=== PATIENT | female | born 1950 | race Caucasian/White ===

== ENCOUNTER → 2016-10-29 | Day surgery (SDC) | payer MEDICARE, BC ==
[~2016-10-29] MED LIST: ALPRAZolam 0.25 MG TAB ONE; BACITRACIN OINT 1 EACH PACKET TOPICAL ONE; LIDOCAINE 1% INJ 10MG/ML (20 ML MDV) ONE; SODIUM BICARB 4% 5 ML VIAL (0.48 MEQ/ML) ONE
--- NOTE | 2016-10-29 11:36 | PCN ---
DATE OF PROCEDURE: PROCEDURE: The patient was taken to the stereotactic biopsy unit and 2 areas of concern in the right breast were localized. The breast was then prepped in a sterile fashion. The first was localized and the skin was anesthetized. Needle was driven to the correct coordinates. Multiple core biopsies were obtained. Radiograph of specimen revealed the area of concern had been sampled and a clip was left behind. Following this, the second area was localized and the needle was driven to the correct coordinates after the skin had been anesthetized with 1% lidocaine. Multiple core biopsies were obtained. Specimen was radiographed. Calcifications of concern were noted in the specimen and a clip was left behind for identification. Both areas were sent to Pathology. One was labeled as superior, the second as inferior. The patient tolerated the procedure in stable condition.
--- NOTE | 2016-10-29 16:42 | MM ---
EXAMINATION TYPE: MG stereo VAD BX RT, 2 sites DATE OF EXAM: 10/29/2016 10:18 AM COMPARISON: 09/28/2016 and 09/14/2016 CLINICAL HISTORY: 66-year-old female referred for stereotactic biopsy for microcalcifications. TECHNIQUE: Stereotactic guided core biopsy of right breast, 2 sites. FINDINGS: The procedure of stereotactic guided core biopsy was explained to the patient. Benefits, alternatives, and risks were discussed. An informed consent was then obtained. The shortness pathway for biopsy was chosen. Shortness pathway was a lateral approach. I performed the localization, then surgeon, Dr. Gurinder Castillo performed the remainder of the procedure. A mammotome vacuum assisted biopsy gun was used to obtain multiple 8 gauge core samples. The patient tolerated the procedure well without any immediate complication. The patient was kept in the radiology department for short stay after the procedure and then discharged home in stable condition. Targeted calcifications are identified in both specimen mammograms. Post biopsy mammogram shows the more anterior plain clip which corresponded to the larger group of microcalcifications to have migrated laterally by 1.5 cm. There are some residual microcalcifications to indicate the original site of biopsy. The more posterior clip with a flared end which corresponded to the smaller group of microcalcifications appears satisfactorily positioned. IMPRESSION: SUCCESSFUL, UNCOMPLICATED STEREOTACTIC GUIDED CORE BIOPSY OF 2 GROUPS OF MICROCALCIFICATIONS IN THE RIGHT BREAST; FULL PATHOLOGY RESULTS TO FOLLOW. NOTE THAT THE MORE ANTERIOR CLIP SHOWS SOME LATERAL MIGRATION. Pathology Results: Benign A. 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 B. 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 Recommendation Follow up mammogram of the right breast in 6 months. ALBERTO
== END ==
LOC: RADMAMWWP 06:46
PROVIDERS: ATTEND Surgery
DX: D24.1 Benign neoplasm of right breast (principal); N60.31 Fibrosclerosis of right breast; N60.11 Diffuse cystic mastopathy of right breast; N60.01 Solitary cyst of right breast; N62 Hypertrophy of breast; R92.8 Other abnormal and inconclusive findings on diagnostic imaging of breast; R92.0 Mammographic microcalcification found on diagnostic imaging of breast
CPT/HCPCS: 88305; 19081; 19082; A4648; J2001